=== PATIENT | female | born 1990 | race Caucasian/White ===

== ENCOUNTER 2017-12-15 20:21 | Outpatient (CLI) | payer MEDICAID | END 2017-12-16 01:35 | disposition home or self-care (01) | LOC: OBT 20:21 → L-D 20:22 | DX: O47.1 False labor at or after 37 completed weeks of gestation (principal); Z3A.37 37 weeks gestation of pregnancy | CPT/HCPCS: 76815 ==

== ENCOUNTER 2018-01-17 15:27 | Inpatient (IN) | payer MEDICAID ==
[2018-01-17] MEDS: LACTATED RINGER'S 1,000 ML IV (15:40)
[2018-01-17 15:48] LABS: ADD MAN DIFF? NO
[2018-01-17 15:51] LABS: WHITE BLOOD COUNT 11.6 10^3/ul (4.8-10.8)
[2018-01-17 15:51] LABS: BASOPHILS % 0.2 % (0.0-2.0); EOSINOPHILS % 0.3 % (0.0-7.0); HEMOGLOBIN 12.4 g/dl (12.0-16.0); LYMPHOCYTES # 1.8 10^3/ul (0.8-2.9); LYMPHOCYTES % 15.2 % (15.0-51.0); MEAN CORPUSCULAR HEMOGLOBIN 30.5 pg (29.0-33.0); MEAN CORPUSCULAR HGB CONC 33.5 g/dl (32.0-37.0); MEAN CORPUSCULAR VOLUME 90.9 fl (82.0-101.0); MEAN PLATELET VOLUME 10.9 fl (7.4-10.4); MONOCYTE # 0.6 10^3/ul (0.3-0.9); MONOCYTES % 4.7 % (0.0-11.0); NEUTROPHIL # 9.2 10^3/ul (1.6-7.5); NEUTROPHILS % 79.2 % (39.0-77.0); PLATELET COUNT 248 10^3/UL (140-415); RED BLOOD COUNT 4.07 10^6/ul (4.20-5.40); RED CELL DISTRIBUTION WIDTH 14.2 % (11.5-14.5)
[2018-01-17] MEDS: BUTORPHANOL 2 MG INJ IV (15:55)
[2018-01-17] MEDS ORDERED: MISOPROSTOL 200 MCG TAB PR ×2 (16:00→18:00)
[2018-01-17] MEDS ORDERED: OXYTOCIN 30 UNITS/LR 500 ML IV ×3 (16:00→18:00)
[2018-01-17] MEDS ORDERED: CARBOPROST 250 MCG INJ IM ×2 (16:00→18:00)
[2018-01-17] MEDS ORDERED: METHYLERGONOVINE 0.2 MG INJ IM ×2 (16:00→18:00)
[2018-01-17] MEDS ORDERED: LIDOCAINE 1% (MPF) 30 ML INJ INJ (16:00)
[2018-01-17 16:14] LABS: PROTIME 12.2 Sec (11.9-14.9)
[2018-01-17 16:15] LABS: PARTIAL THROMBOPLASTIN TIME 26.2 Sec (25.0-35.0)
[2018-01-17] MEDS: OXYTOCIN 30 UNITS/LR 500 ML IV ×3 (16:29→21:26)
[2018-01-17] MEDS ORDERED: WITCH HAZEL/GLYCERIN PAD PR (18:00)
[2018-01-17] MEDS ORDERED: SENNA/DOCUSATE NA (8.6MG/50MG) TAB PO (18:00)
[2018-01-17] MEDS ORDERED: BENZOCAINE 20% 56 ML SPRAY TOP (18:00)
[2018-01-17] MEDS ORDERED: NACL 0.9% 3 ML SYG IV (18:00)
[2018-01-17] MEDS ORDERED: ZOLPIDEM 5 MG TAB PO (18:00)
[2018-01-17] MEDS: IBUPROFEN 600 MG TAB PO ×2 (18:00→23:33)
[2018-01-17 18:53] LABS: HEPATITIS B SURFACE ANTIGEN NEGATIVE (NEGATIVE)
[2018-01-17] MEDS: OXYCODONE/ASPIRIN (4.88/325) TAB PO (19:45)
[2018-01-17] MEDS: SENNA/DOCUSATE NA (8.6MG/50MG) TAB PO (21:25)
[2018-01-18] MEDS: OXYCODONE/ASPIRIN (4.88/325) TAB PO (04:40)
[2018-01-18] MEDS: IBUPROFEN 600 MG TAB PO ×4 (06:00→23:32)
[2018-01-18 09:31] LABS: ADD MAN DIFF? NO
[2018-01-18 09:35] LABS: BASOPHILS % 0.3 % (0.0-2.0); EOSINOPHILS # 0.1 10^3/ul (0.0-0.5); EOSINOPHILS % 0.8 % (0.0-7.0); HEMATOCRIT 35.1 % (37.0-47.0); HEMOGLOBIN 11.8 g/dl (12.0-16.0); LYMPHOCYTES # 2.1 10^3/ul (0.8-2.9); LYMPHOCYTES % 22.1 % (15.0-51.0); MEAN CORPUSCULAR HEMOGLOBIN 30.3 pg (29.0-33.0); MEAN CORPUSCULAR HGB CONC 33.6 g/dl (32.0-37.0); MONOCYTE # 0.5 10^3/ul (0.3-0.9); MONOCYTES % 4.9 % (0.0-11.0); NEUTROPHIL # 6.8 10^3/ul (1.6-7.5); NEUTROPHILS % 70.9 % (39.0-77.0); PLATELET COUNT 208 10^3/UL (140-415); RED CELL DISTRIBUTION WIDTH 14.5 % (11.5-14.5)
[2018-01-18 09:35] LABS: WHITE BLOOD COUNT 9.6 10^3/ul (4.8-10.8)
[2018-01-18] MEDS: SENNA/DOCUSATE NA (8.6MG/50MG) TAB PO ×2 (11:17→21:38)
[2018-01-18 16:41] LABS: RAPID PLASMA REAGIN NONREACTIVE (NR)
[2018-01-19] MEDS: IBUPROFEN 600 MG TAB PO ×2 (06:21→11:55)
[2018-01-19] MEDS: SENNA/DOCUSATE NA (8.6MG/50MG) TAB PO (09:13)
[2018-01-19] MEDS: DIPHTH/TET/ACEL PERTUSS (ADULT) 0.5 ML VIAL IM* (09:13)
== END 2018-01-19 12:40 | disposition home or self-care (01) | DRG 775 ==
LOC: OBT 15:27 → L-D 15:29 → PP1 17:20
PROVIDERS: Obstetrics & Gynecology
PROC: 10E0XZZ Delivery of Products of Conception, External Approach (ICD-10-PCS; principal; 2018-01-17)
DX: O80 Encounter for full-term uncomplicated delivery (principal); Z3A.38 38 weeks gestation of pregnancy; Z37.0 Single live birth
CPT/HCPCS: 85025; 85610; 85730; 86592; 86850; 86900; 86901; 87340

== ENCOUNTER 2018-11-24 19:35 | Outpatient (CLI) | payer MEDICAID ==
[2018-11-24 22:35] LABS: ADD UMIC YES; UR ASCORBIC ACID NEGATIVE (NEGATIVE); UR BACTERIA FEW /HPF (NONE SEEN); UR BILIRUBIN (Dip) NEGATIVE (NEGATIVE); UR BLOOD (Dip) NEGATIVE (NEGATIVE); UR CALCIUM OXALATE CRYSTAL FEW /HPF (NONE SEEN); UR CLARITY CLOUDY (CLEAR); UR COLOR AMBER (YELLOW); UR GLUCOSE (Dip) 3+ mg/dL (NEGATIVE); UR KETONES (Dip) TRACE mg/dL (NEGATIVE); UR LEUKOCYTE ESTERASE (Dip) TRACE Leu/ul (NEGATIVE); UR MUCUS FEW /HPF (NONE SEEN); UR NITRITE (Dip) NEGATIVE (NEGATIVE); UR RBC 4 /HPF (0-5); UR SPECIFIC GRAVITY (Dip) 1.032 (1.003-1.030); UR SQUAMOUS EPITHELIAL CELL FEW /HPF (FEW); UR TOTAL PROTEIN (Dip) NEGATIVE (NEGATIVE); UR UROBILINOGEN (Dip) 2+ mg/dL (NEGATIVE); UR WBC 8 /HPF (0-5)
== END 2018-11-24 23:18 | disposition home or self-care (01) ==
LOC: OBT 19:35 → L-D 19:36 → OBT 23:18
DX: O62.9 Abnormality of forces of labor, unspecified (principal); Z3A.30 30 weeks gestation of pregnancy
CPT/HCPCS: 81001

== ENCOUNTER 2018-12-10 23:10 | Inpatient (IN) | payer MEDICAID ==
[2018-12-11] MEDS ORDERED: LIDOCAINE 1% (MPF) 30 ML INJ INJ
[2018-12-11] MEDS: DIPHENHYDRAMINE 50 MG INJ IV (00:33)
[2018-12-11] MEDS: LACTATED RINGER'S 1,000 ML IV ×3 (00:33→12:42)
[2018-12-11 00:52] LABS: ADD MAN DIFF? NO
[2018-12-11 00:55] LABS: WHITE BLOOD COUNT 5.3 10^3/ul (4.8-10.8)
[2018-12-11 00:55] LABS: BASOPHILS % 0.2 % (0.0-2.0); EOSINOPHILS % 0.7 % (0.0-7.0); HEMATOCRIT 33.2 % (37.0-47.0); HEMOGLOBIN 10.7 g/dl (12.0-16.0); LYMPHOCYTES # 1.7 10^3/ul (0.8-2.9); LYMPHOCYTES % 30.9 % (15.0-51.0); MEAN CORPUSCULAR HEMOGLOBIN 28.5 pg (29.0-33.0); MEAN CORPUSCULAR HGB CONC 32.2 g/dl (32.0-37.0); MEAN CORPUSCULAR VOLUME 88.3 fl (82.0-101.0); MEAN PLATELET VOLUME 12.2 fl (7.4-10.4); MONOCYTE # 0.3 10^3/ul (0.3-0.9); MONOCYTES % 6.2 % (0.0-11.0); NEUTROPHIL # 3.3 10^3/ul (1.6-7.5); NEUTROPHILS % 61.6 % (39.0-77.0); PLATELET COUNT 211 10^3/UL (140-415); RED BLOOD COUNT 3.76 10^6/ul (4.20-5.40); RED CELL DISTRIBUTION WIDTH 13.4 % (11.5-14.5)
[2018-12-11 01:05] LABS: UR BILIRUBIN (Dip) NEGATIVE (NEGATIVE); UR BLOOD (Dip) NEGATIVE (NEGATIVE); UR CLARITY SLIGHTLY CLOUDY (CLEAR); UR COLOR AMBER (YELLOW); UR GLUCOSE (Dip) 1+ mg/dL (NEGATIVE); UR KETONES (Dip) NEGATIVE (NEGATIVE); UR NITRITE (Dip) NEGATIVE (NEGATIVE); UR SPECIFIC GRAVITY (Dip) 1.017 (1.003-1.030); UR TOTAL PROTEIN (Dip) 1+ mg/dl (NEGATIVE); UR UROBILINOGEN (Dip) 2+ mg/dL (NEGATIVE)
[2018-12-11 01:06] LABS: ADD UMIC YES; UR ASCORBIC ACID NEGATIVE (NEGATIVE); UR BACTERIA FEW /HPF (NONE SEEN); UR LEUKOCYTE ESTERASE (Dip) NEGATIVE Leu/ul (NEGATIVE); UR RBC 0 /HPF (0-5); UR SQUAMOUS EPITHELIAL CELL FEW /HPF (FEW); UR WBC 1 /HPF (0-5)
[2018-12-11 01:17] LABS: ALANINE AMINOTRANSFERASE 267 IU/L (13-69); ALBUMIN 3.1 g/dl (3.3-4.9); ALBUMIN/GLOBULIN RATIO 1.03; ALKALINE PHOSPHATASE 300 IU/L (42-121); ANION GAP 10 (5-13); ASPARTATE AMINO TRANSFERASE 119 IU/L (15-46); BILIRUBIN,INDIRECT 0.3 mg/dl (0-1.1); BILIRUBIN,TOTAL 0.3 mg/dl (0.2-1.3); BLOOD UREA NITROGEN 10 mg/dl (7-20); CALCIUM 9.5 mg/dl (8.4-10.2); CARBON DIOXIDE 23 mmol/L (21-31); CHLORIDE 103 mmol/L (97-110); CREATININE 0.42 mg/dl (0.44-1.00); Estimated GFR > 60 mL/min (>60); GLUCOSE 125 mg/dl (70-220); POTASSIUM 4.1 mmol/L (3.5-5.1); SODIUM 136 mmol/L (135-144); TOTAL PROTEIN 6.1 g/dl (6.1-8.1)
[2018-12-11 01:20] LABS: INR 0.84; PROTIME 11.6 Sec (11.9-14.9); PT RATIO 0.9
[2018-12-11 01:21] LABS: PARTIAL THROMBOPLASTIN TIME 25.7 Sec (23.0-35.0)
[2018-12-11 01:41] LABS: AMPHETAMINE/METHAMPHETAMINE Negative (NEGATIVE); BARBITURATES Negative (NEGATIVE); BENZODIAZEPINES Negative (NEGATIVE); CANNABINOIDS Negative (NEGATIVE); COCAINE Negative (NEGATIVE); OPIATES Negative (NEGATIVE)
[2018-12-11 01:47] LABS: HEPATITIS B SURFACE ANTIGEN NEGATIVE (NEGATIVE)
[2018-12-11] MEDS: BUTORPHANOL 2 MG INJ IV ×2 (01:56→06:19)
[2018-12-11] MEDS ORDERED: FENTAnyl 2MCG/ML-ROPIV 0.2% 100 ML (07:45)
[2018-12-11] MEDS: DEXTROSE 5%-LR 1,000 ML IV ×2 (08:22→19:11)
[2018-12-11] MEDS ORDERED: NALOXONE (0.4 MG/ML) INJ IV (09:00)
[2018-12-11 09:04] LABS: ALANINE AMINOTRANSFERASE 241 IU/L (13-69); ALBUMIN 2.9 g/dl (3.3-4.9); ALBUMIN/GLOBULIN RATIO 0.93; ALKALINE PHOSPHATASE 310 IU/L (42-121); ANION GAP 6 (5-13); ASPARTATE AMINO TRANSFERASE 108 IU/L (15-46); BILIRUBIN,INDIRECT 0.5 mg/dl (0-1.1); BILIRUBIN,TOTAL 0.5 mg/dl (0.2-1.3); BLOOD UREA NITROGEN 9 mg/dl (7-20); CARBON DIOXIDE 22 mmol/L (21-31); CHLORIDE 109 mmol/L (97-110); CREATININE 0.42 mg/dl (0.44-1.00); Estimated GFR > 60 mL/min (>60); GLUCOSE 118 mg/dl (70-220); POTASSIUM 3.7 mmol/L (3.5-5.1); SODIUM 137 mmol/L (135-144)
[2018-12-11] MEDS: OXYTOCIN 30 UNITS/LR 500 ML IV ×2 (11:16→17:51)
[2018-12-11] MEDS: ONDANSETRON 4 MG INJ IV (15:12)
[2018-12-11] MEDS: FENTAnyl 2MCG/ML-ROPIV 0.2% 100 ML BAG EPI (16:51)
[2018-12-11 16:54] LABS: RAPID PLASMA REAGIN NONREACTIVE (NR)
[2018-12-11] MEDS: MISOPROSTOL 200 MCG TAB PR (17:26)
[2018-12-11] MEDS: LACTATED RINGER'S 1,000 ML IV* (19:11)
[2018-12-11] MEDS: IBUPROFEN 600 MG TAB PO (19:26)
[2018-12-11] MEDS ORDERED: METHYLERGONOVINE 0.2 MG INJ IM ×2 (19:30)
[2018-12-11] MEDS ORDERED: ACETAMINOPHEN 325 MG TAB PO (19:30)
[2018-12-11] MEDS ORDERED: SENNA/DOCUSATE NA (8.6MG/50MG) TAB PO (19:30)
[2018-12-11] MEDS ORDERED: ZOLPIDEM 5 MG TAB PO (19:30)
[2018-12-11] MEDS ORDERED: OXYTOCIN 30 UNITS/LR 500 ML IV ×3 (19:30)
[2018-12-11] MEDS ORDERED: DIBUCAINE 1% 30 GM OINT TOP (19:30)
[2018-12-11] MEDS ORDERED: CARBOPROST 250 MCG INJ IM ×2 (19:30)
[2018-12-11] MEDS ORDERED: MISOPROSTOL 200 MCG TAB PR (19:30)
[2018-12-11] MEDS ORDERED: ONDANSETRON 4 MG INJ IV (19:30)
[2018-12-11] MEDS ORDERED: DIPHENHYDRAMINE 50 MG INJ IV (19:30)
[2018-12-11] MEDS: HYDROCODONE/APAP (5/325) TAB PO (20:01)
[2018-12-11 20:16] LABS: ADD MAN DIFF? NO
[2018-12-11 20:18] LABS: BASOPHILS % 0.3 % (0.0-2.0); EOSINOPHILS % 0.1 % (0.0-7.0); HEMATOCRIT 34.9 % (37.0-47.0); HEMOGLOBIN 11.1 g/dl (12.0-16.0); LYMPHOCYTES # 1.3 10^3/ul (0.8-2.9); LYMPHOCYTES % 13.4 % (15.0-51.0); MEAN CORPUSCULAR HEMOGLOBIN 28.4 pg (29.0-33.0); MEAN CORPUSCULAR HGB CONC 31.8 g/dl (32.0-37.0); MEAN CORPUSCULAR VOLUME 89.3 fl (82.0-101.0); MEAN PLATELET VOLUME 12.4 fl (7.4-10.4); MONOCYTE # 0.4 10^3/ul (0.3-0.9); MONOCYTES % 3.6 % (0.0-11.0); NEUTROPHIL # 8.1 10^3/ul (1.6-7.5); NEUTROPHILS % 82.2 % (39.0-77.0); PLATELET COUNT 191 10^3/UL (140-415); RED BLOOD COUNT 3.91 10^6/ul (4.20-5.40); RED CELL DISTRIBUTION WIDTH 13.7 % (11.5-14.5)
[2018-12-11 20:18] LABS: WHITE BLOOD COUNT 9.8 10^3/ul (4.8-10.8)
[2018-12-11 20:36] LABS: ALANINE AMINOTRANSFERASE 239 IU/L (13-69); ALBUMIN 2.9 g/dl (3.3-4.9); ALBUMIN/GLOBULIN RATIO 0.93; ALKALINE PHOSPHATASE 289 IU/L (42-121); ANION GAP 5 (5-13); ASPARTATE AMINO TRANSFERASE 125 IU/L (15-46); BILIRUBIN,INDIRECT 0.4 mg/dl (0-1.1); BILIRUBIN,TOTAL 0.4 mg/dl (0.2-1.3); BLOOD UREA NITROGEN 7 mg/dl (7-20); CALCIUM 9.2 mg/dl (8.4-10.2); CARBON DIOXIDE 27 mmol/L (21-31); CHLORIDE 106 mmol/L (97-110); CREATININE 0.52 mg/dl (0.44-1.00); Estimated GFR > 60 mL/min (>60); GLUCOSE 166 mg/dl (70-220); POTASSIUM 3.4 mmol/L (3.5-5.1); SODIUM 138 mmol/L (135-144)
[2018-12-11 20:38] LABS: UR AMORPHOUS CRYSTAL FEW /HPF (NONE SEEN)
[2018-12-12] MEDS: BENZOCAINE 20% 56 ML SPRAY TOP (00:35)
[2018-12-12] MEDS: LANOLIN HPA 1 PKT TOP (00:35)
[2018-12-12] MEDS: IBUPROFEN 600 MG TAB PO ×4 (00:35→18:11)
[2018-12-12] MEDS: WITCH HAZEL/GLYCERIN PAD PR (00:36)
[2018-12-12] MEDS: LACTATED RINGER'S 1,000 ML IV* ×3 (03:11→19:11)
[2018-12-12] MEDS: DEXTROSE 5%-LR 1,000 ML IV ×3 (03:11→19:11)
[2018-12-12] MEDS: OXYCODONE/ASPIRIN (4.88/325) TAB PO ×3 (07:57→19:58)
[2018-12-12 08:10] LABS: ADD MAN DIFF? NO
[2018-12-12 08:16] LABS: BASOPHILS % 0.5 % (0.0-2.0); EOSINOPHILS # 0.1 10^3/ul (0.0-0.5); EOSINOPHILS % 0.9 % (0.0-7.0); HEMOGLOBIN 10.3 g/dl (12.0-16.0); LYMPHOCYTES # 2.5 10^3/ul (0.8-2.9); MEAN CORPUSCULAR HEMOGLOBIN 28.7 pg (29.0-33.0); MEAN CORPUSCULAR HGB CONC 32.2 g/dl (32.0-37.0); MEAN CORPUSCULAR VOLUME 89.1 fl (82.0-101.0); MEAN PLATELET VOLUME 12.4 fl (7.4-10.4); MONOCYTE # 0.5 10^3/ul (0.3-0.9); MONOCYTES % 6.2 % (0.0-11.0); NEUTROPHIL # 5.5 10^3/ul (1.6-7.5); NEUTROPHILS % 62.8 % (39.0-77.0); PLATELET COUNT 192 10^3/UL (140-415); RED BLOOD COUNT 3.59 10^6/ul (4.20-5.40); RED CELL DISTRIBUTION WIDTH 13.4 % (11.5-14.5)
[2018-12-12 08:16] LABS: WHITE BLOOD COUNT 8.8 10^3/ul (4.8-10.8)
[2018-12-13] MEDS: IBUPROFEN 600 MG TAB PO ×5 (00:04→23:35)
[2018-12-13] MEDS: DEXTROSE 5%-LR 1,000 ML IV (05:27)
[2018-12-13] MEDS: LACTATED RINGER'S 1,000 ML IV* ×3 (05:28→18:17)
[2018-12-13] MEDS: MEASLES,MUMPS,RUBELLA VACCINE INJ SC* (09:32)
[2018-12-13] MEDS: DIPHTH/TET/ACEL PERTUSS (ADULT) 0.5 ML VIAL IM* (09:32)
[2018-12-13] MEDS ORDERED: DIPHENHYDRAMINE 50 MG INJ IV (12:30)
[2018-12-13] MEDS ORDERED: FENTAnyl 50 MCG/ML VIAL IV ×3 (12:30)
[2018-12-13] MEDS ORDERED: MEPERIDINE 25 MG INJ IV (12:30)
[2018-12-13] MEDS ORDERED: HYDROmorphONE 1 MG/5 ML IV SYRINGE IV ×2 (12:30)
[2018-12-13] MEDS ORDERED: PROCHLORPERAZINE 10 MG INJ IV (12:30)
[2018-12-13] MEDS ORDERED: ONDANSETRON 4 MG INJ IV (12:30)
[2018-12-13] MEDS ORDERED: FENTAnyl 50 MCG/ML VIAL ×2 (13:04→13:39)
[2018-12-13] MEDS ORDERED: MIDAZOLAM 1 MG/ML 2 ML INJ ×2 (13:04→13:38)
[2018-12-13] MEDS ORDERED: CEFAZOLIN 1 GM INJ (13:17)
[2018-12-13] MEDS ORDERED: PROPOFOL 40 ML (14:40)
[2018-12-13] MEDS ORDERED: KETOROLAC 30 MG INJ (14:47)
[2018-12-13] MEDS: HYDROmorphONE 1 MG/5 ML IV SYRINGE IV ×2 (15:01→15:43)
[2018-12-13] MEDS: OXYCODONE/ASPIRIN (4.88/325) TAB PO (16:21)
[2018-12-13] MEDS: HYDROCODONE/APAP (5/325) TAB PO (20:55)
[2018-12-14] MEDS: OXYCODONE/ASPIRIN (4.88/325) TAB PO ×2 (01:57→08:43)
[2018-12-14] MEDS: LACTATED RINGER'S 1,000 ML IV* (03:11)
[2018-12-14] MEDS: IBUPROFEN 600 MG TAB PO ×2 (05:24→11:31)
[2018-12-14 14:10] LABS: ADD MAN DIFF? NO
[2018-12-14 14:12] LABS: BASOPHILS % 0.5 % (0.0-2.0); EOSINOPHILS # 0.1 10^3/ul (0.0-0.5); EOSINOPHILS % 2.1 % (0.0-7.0); HEMATOCRIT 31.9 % (37.0-47.0); HEMOGLOBIN 10.4 g/dl (12.0-16.0); LYMPHOCYTES # 1.5 10^3/ul (0.8-2.9); LYMPHOCYTES % 23.9 % (15.0-51.0); MEAN CORPUSCULAR HEMOGLOBIN 28.8 pg (29.0-33.0); MEAN CORPUSCULAR HGB CONC 32.6 g/dl (32.0-37.0); MEAN CORPUSCULAR VOLUME 88.4 fl (82.0-101.0); MEAN PLATELET VOLUME 11.2 fl (7.4-10.4); MONOCYTE # 0.3 10^3/ul (0.3-0.9); MONOCYTES % 4.8 % (0.0-11.0); NEUTROPHIL # 4.1 10^3/ul (1.6-7.5); PLATELET COUNT 231 10^3/UL (140-415); RED BLOOD COUNT 3.61 10^6/ul (4.20-5.40); RED CELL DISTRIBUTION WIDTH 13.5 % (11.5-14.5)
[2018-12-14 14:12] LABS: WHITE BLOOD COUNT 6.1 10^3/ul (4.8-10.8)
[2018-12-14 15:57] LABS: CHENODEOXYCHOLIC ACID 1.9 umol/L (< OR = 3.1); CHOLIC ACID 4.4 umol/L (< OR = 1.8); DEOXYCHOLIC ACID <0.5 umol/L (< OR = 2.4); TOTAL BILE ACIDS 6.2 umol/L (< OR = 6.8)
== END 2018-12-14 14:35 | disposition home or self-care (01) | DRG 798 ==
LOC: OBT 23:10 → L-D 23:12 → PP1 12-11 20:34
PROC: 0UB70ZZ Excision of Bilateral Fallopian Tubes, Open Approach (ICD-10-PCS; 2018-12-13 10:00)
PROC: 10E0XZZ Delivery of Products of Conception, External Approach (ICD-10-PCS; principal; 2018-12-13 12:34)
PROC: 4A1HXCZ Monitoring of Products of Conception, Cardiac Rate, External Approach (ICD-10-PCS; 2018-12-13 12:34)
DX: O26.893 Other specified pregnancy related conditions, third trimester (principal); Z37.0 Single live birth; L29.9 Pruritus, unspecified; Z3A.37 37 weeks gestation of pregnancy; Z30.2 Encounter for sterilization
CPT/HCPCS: 80053; 80307; 81001; 83789; 84560; 85025; 85610; 85730; 86592; 86850; 86900; 86901; 87340; 88302